=== PATIENT | female | born 1990 | race Caucasian/White ===

== ENCOUNTER 2023-10-25 06:10 | Inpatient (IN) | payer BC ==
[2023-10-25] MEDS ORDERED: Ibuprofen 800 MG TAB PO PRN (07:38)
[2023-10-25] MEDS ORDERED: Lidocaine 1% (PF) 30 ML VIAL SC PRN (07:38)
[2023-10-25] MEDS ORDERED: fentaNYL 50 mcg/mL 1 mL Vial SLOW IVP PRN (07:38)
[2023-10-25] MEDS ORDERED: Ondansetron PF 4 MG/2 ML Vial IVP PRN ×2 (07:38→10:15)
[2023-10-25] MEDS ORDERED: Acetaminophen 500 MG TAB PO PRN (07:38)
[2023-10-25] MEDS ORDERED: HYDROcodone/Acetaminophen 5/325 mg Tablet PO PRN ×2 (07:38)
[2023-10-25] MEDS ORDERED: Promethazine HCl 25 MG/ML VIAL IM PRN ×2 (07:38→10:15)
[2023-10-25] MEDS ORDERED: hydrALAZINE 20 MG/ML VIAL SLOW IVP PRN ×2 (07:38→22:32)
[2023-10-25] MEDS ORDERED: Tranexamic Acid 1,000 MG/10 ML VIAL IVP PRN (07:38)
[2023-10-25] MEDS ORDERED: Diphenoxylate HCl/Atropine Tablet PO PRN ×2 (07:38)
[2023-10-25] MEDS ORDERED: Methylergonovine 0.2 MG/ML VIAL IM PRN (07:38)
[2023-10-25] MEDS ORDERED: Carboprost 250 MCG/ML AMP IM PRN (07:38)
[2023-10-25] MEDS ORDERED: Misoprostol 200 MCG TAB PR PRN (07:38)
[2023-10-25] MEDS ORDERED: Lactated Ringer's 1,000 ML IV SCH (07:45)
[2023-10-25] MEDS ORDERED: Oxytocin 30 units/NS 500 ML 500 ML IV SCH ×2 (07:45)
[2023-10-25] MEDS ORDERED: Oxytocin 30 units/NS 500 ML 500 ML ONE (07:48)
[2023-10-25 07:57] LABS: Hematocrit 31.6 % (34.9-44.5); Hemoglobin 10.3 g/dL (12.0-15.5); Mean Corpuscular HGB CONC 32.6 g/dL (32.0-36.0); Mean Corpuscular Hemoglobin 30.1 pg (27.0-33.0); Mean Corpuscular Volume 92.4 fl (81.6-98.3); Mean Platelet Volume 12.2 fl (7.4-10.4); Platelet Count 301 10x3/uL (150-450); RBC Distribution Width 14.9 % (11.5-14.5); Red Blood Cell (RBC) Count 3.42 10x6/uL (3.90-5.03); White Blood Cell (WBC) Count 10.8 10x3/uL (3.5-10.5)
[2023-10-25] MEDS ORDERED: Bupivacaine 0.25% HCL 30 ML VIAL ONE (08:00)
[2023-10-25 08:31] LABS: Hep B Surf Ag - L&D Non-Reactive S/CO (NonReactive)
[2023-10-25 08:33] LABS: Syphilis Antibody Nonreactive (Nonreactive); Syphilis Antibody Index 0.07 S/CO (<1.00 Non-Reactive)
[2023-10-25] MEDS ORDERED: fentaNYL/Ropivacaine Epidural 100 ML ONE (10:04)
[2023-10-25] MEDS ORDERED: Naloxone HCl 0.4 mg/ml Vial IVP PRN ×2 (10:15)
[2023-10-25] MEDS ORDERED: diphenhydrAMINE 50 MG/ML VIAL IVP PRN (10:15)
[2023-10-25] MEDS ORDERED: Acetaminophen 325 MG TAB PO PRN (10:15)
[2023-10-25] MEDS ORDERED: ePHEDrine Sulfate 50 MG/10 ML VIAL SLOW IVP PRN (10:15)
[2023-10-25] MEDS ORDERED: Moisturizing Cream (Eucerin) 113 GM JAR TOP PRN (10:15)
[2023-10-25] MEDS ORDERED: Lactated Ringer's 500 ML IV PRN (10:15)
[2023-10-25] MEDS ORDERED: Communication Order-Pharmacy FS SCH (10:15)
[2023-10-25] MEDS ORDERED: fentaNYL 2 mcg/Ropivacaine 0.2% Epidural 100 ML CADD EPIDURAL SCH (10:15)
[2023-10-25 10:50] VITALS: BMI 36.6
[2023-10-25] MEDS ORDERED: Lanolin Ointment 7 GM TUBE TOP PRN (22:32)
[2023-10-25] MEDS ORDERED: Boostrix 0.5 ML (Tdap) VIAL (>/=7 yrs of age) IM ONE (22:32)
[2023-10-25] MEDS ORDERED: traMADol HCl 50 MG TAB PO PRN (22:32)
[2023-10-25] MEDS ORDERED: Benzocaine-Menthol 82.5 ML CAN TOP PRN (22:32)
[2023-10-25] MEDS ORDERED: Bisacodyl 10 MG SUPP PR PRN (22:32)
[2023-10-25] MEDS ORDERED: diphenhydrAMINE 25 MG CAP PO PRN (22:32)
[2023-10-25] MEDS ORDERED: Docusate 100 MG CAP PO SCH (22:45)
[2023-10-26] MEDS: Ibuprofen 800 MG TAB PO SCH ×3 (03:21→21:22)
[2023-10-26] MEDS: Ferrous Sulfate 325 MG TAB PO SCH ×2 (08:10→15:27)
[2023-10-26] MEDS: Prenatal Vitamin 1 TAB PO SCH (08:26)
[2023-10-26] MEDS: Docusate 100 MG CAP PO SCH ×2 (08:26→21:22)
[2023-10-26] MEDS: Milk Of Magnesia 30 ML UDCUP PO PRN (08:29)
[2023-10-27] MEDS: Ibuprofen 800 MG TAB PO SCH ×2 (02:53→05:10)
[2023-10-27] MEDS: Ferrous Sulfate 325 MG TAB PO SCH (07:38)
[2023-10-27 08:03] VITALS: BP 147/70; TEMP 98
[2023-10-27] MEDS: Prenatal Vitamin 1 TAB PO SCH (08:07)
[2023-10-27] MEDS: Docusate 100 MG CAP PO SCH (08:07)
[2023-10-27] MEDS: Milk Of Magnesia 30 ML UDCUP PO PRN (08:07)
== END 2023-10-27 11:00 | disposition home or self-care (01) | DRG 768 ==
LOC: CSHLD 06:10 → CSHPP 22:16
PROVIDERS: ADMIT Obstetrics & Gynecology; ATTEND Obstetrics & Gynecology
PROC: 10D07Z3 Extraction of Products of Conception, Low Forceps, Via Natural or Artificial Opening (ICD-10-PCS; principal; 2023-10-25)
PROC: 0DQR0ZZ Repair Anal Sphincter, Open Approach (ICD-10-PCS; 2023-10-25)
DX: O70.20 Third degree perineal laceration during delivery, unspecified (principal); Z37.0 Single live birth; O75.81 Maternal exhaustion complicating labor and delivery; Z3A.39 39 weeks gestation of pregnancy; Z91.040 Latex allergy status
CPT/HCPCS: 36415; 51702; 85027; 86780; 86850; 86900; 86901; 87340; S0020